=== PATIENT | female | born 1955 | race African-American/Black ===

== ENCOUNTER 2018-12-16 11:10 | Inpatient (IN) | payer SELFPAY ==
[~2018-12-16] VITALS: Ht 160 cm; Wt 50.9 kg
[2018-12-16] MEDS ORDERED: IPRATROPIUM BROMIDE (0.02%) 0.5MG/2.5ML NEB HHN STA (11:52)
[2018-12-16] MEDS ORDERED: ALBUTEROL (0.083%) 2.5MG/3ML NEB HHN STA (11:52)
[2018-12-16] MEDS ORDERED: METHYLPREDNISOLONE SOD SUCC 125 MG/2 ML VIAL IV STA (11:52)
[2018-12-16] MEDS ORDERED: ASPIRIN 81MG TABLET PO ONE (12:00)
[2018-12-16] MEDS ORDERED: NITROGLYCERIN 0.4MG TABLET SL SL PRN (12:00)
[2018-12-16 12:09] LABS: HEMATOCRIT. 37.2 % (36.0-48.0); MEAN CORPUSCULAR VOLUME 80.6 fL (81.0-99.0); MEAN PLATELET VOLUME 9.3 fl (7.4-10.4); PLATELET 235 x1000/uL (130-400); RED BLOOD CELL COUNT 4.61 mill/uL (4.2-5.4); RED CELL DISTRIBUTION WIDTH 15.9 % (11.6-14.6)
[2018-12-16 12:13] LABS: CHLORIDE 108 mEq/L (98-107)
[2018-12-16 12:17] LABS: PARTIAL THROMBOPLASTIN TIME 26.2 sec (23.4-31.0)
[2018-12-16 12:36] LABS: PLATELET ESTIMATE NORMAL
[2018-12-16] MEDS ORDERED: LORAZEPAM 2MG/ML CPJ IV PRN (13:15)
[2018-12-16] MEDS ORDERED: METHYLPREDNISOLONE SOD SUCC 125 MG/2 ML VIAL IV SCH (13:15)
[2018-12-16] MEDS ORDERED: ACETAMINOPHEN 325MG TABLET PO PRN (13:15)
[2018-12-16] MEDS ORDERED: CLONIDINE 0.1MG TABLET PO PRN (13:15)
[2018-12-16] MEDS ORDERED: ONDANSETRON HCL 4MG/2ML INJ IV PRN (13:15)
[2018-12-16] MEDS ORDERED: NA PHOS,M-B/NA PHOS,DI-BA ENEMA 118ML PR PRN (13:15)
[2018-12-16] MEDS ORDERED: IPRATROPIUM/ALBUTEROL 0.5-3(2.5)MG/3ML NEB INH PRN (13:15)
[2018-12-16] MEDS ORDERED: MAGNESIUM/ALUMINUM HYDROXIDE/SIMETHICONE 30ML UDC PO PRN (13:15)
[2018-12-16] MEDS ORDERED: GUAIFENESIN 200MG/10ML SUGAR FREE UDC PO PRN (13:15)
[2018-12-16] MEDS ORDERED: DOCUSATE SODIUM 100MG CAPSULE PO PRN (13:15)
[2018-12-16] MEDS ORDERED: HYDRALAZINE HCL 25MG TABLET PO ONE (13:30)
[2018-12-16 13:33] LABS: CHLORIDE 107 mEq/L (98-107)
[2018-12-16] MEDS ORDERED: ENOXAPARIN 40MG/0.4ML SYR SUBCUT NR (14:00)
[2018-12-16] MEDS ORDERED: IPRATROPIUM/ALBUTEROL 0.5-3(2.5)MG/3ML NEB HHN SCH (18:00)
[2018-12-16] MEDS ORDERED: POTASSIUM CHLORIDE 20MEQ TABLET SR PO NR (20:15)
[2018-12-16] MEDS: HYDROCODONE/ACETAMINOPHEN 5/325MG TABLET PO PRN (22:03)
[2018-12-16 23:08] VITALS: BP 170/76
[2018-12-16 23:28] VITALS: BP 170/76
[2018-12-17] MEDS: NICOTINE 14MG PATCH TD SCH ×2 (00:37→08:30)
[2018-12-17] MEDS: IPRATROPIUM/ALBUTEROL 0.5-3(2.5)MG/3ML NEB HHN SCH ×2 (00:55→07:39)
[2018-12-17] MEDS: BUDESONIDE 0.5MG/2ML NEB HHN SCH ×2 (00:56→07:39)
[2018-12-17 04:00] VITALS: BP 122/67
[2018-12-17 06:45] LABS: BASOPHILS % 0.2 % (0.0-2.0); EOSINOPHILS % 0.1 % (0.0-5.0); HEMATOCRIT. 33.1 % (36.0-48.0); HEMOGLOBIN. 10.6 g/dL (12.0-16.0); MEAN CORPUSCULAR VOLUME 81.3 fL (81.0-99.0); MEAN PLATELET VOLUME 10.4 fl (7.4-10.4); MONOCYTES % 10.7 % (2.0-8.0); PLATELET 180 x1000/uL (130-400); RED BLOOD CELL COUNT 4.07 mill/uL (4.2-5.4)
[2018-12-17 07:03] LABS: CHLORIDE 109 mEq/L (98-107)
[2018-12-17] MEDS: HYDROCODONE/ACETAMINOPHEN 5/325MG TABLET PO PRN (07:27)
[2018-12-17 07:32] LABS: LDL CHOLESTEROL 102 mg/dL (5-100)
[2018-12-17 07:34] LABS: T4 FREE 0.73 ng/dL (0.76-1.46)
[2018-12-17 07:35] LABS: HDL CHOLESTEROL 81 mg/dL (40-59)
[2018-12-17 08:00] VITALS: BP 176/83
[2018-12-17] MEDS ORDERED: ASPIRIN 81MG EC TABLET PO SCH (09:00)
[2018-12-17 10:01] VITALS: BP 145/76
[2018-12-17] MEDS ORDERED: ENOXAPARIN 40MG/0.4ML SYR SUBCUT SCH (12:00)
== END 2018-12-17 11:30 | disposition home or self-care (01) | DRG 243 ==
LOC: ER 11:10 → 8WST 13:02 → ENRESERV 21:09
PROVIDERS: ADMIT Internal Medicine; ATTEND Internal Medicine
DX: K21.9 Gastro-esophageal reflux disease without esophagitis (principal); J96.00 Acute respiratory failure, unspecified whether with hypoxia or hypercapnia; J44.1 Chronic obstructive pulmonary disease with (acute) exacerbation; F17.210 Nicotine dependence, cigarettes, uncomplicated; I10 Essential (primary) hypertension; M19.90 Unspecified osteoarthritis, unspecified site
CPT/HCPCS: 36415; 71045; 78582; 80048; 80061; 83880; 84439; 84443; 84484; 93005; 93970; 94640; 94644; 96374; 99285; A9558; J1650; J2930; J7611; J7620; J7626